=== PATIENT | female | born 1975 | race Two or more races ===

== ENCOUNTER 2022-03-28 15:00 | Inpatient (IN) | payer OTHER ==
[~2022-03-28] VITALS: Ht 160 cm; Wt 65.8 kg
[~2022-03-28 15:00] MED LIST: SYNTHROID100 MCG
== END 2022-03-30 12:12 | disposition home or self-care (01) | DRG 581 ==
LOC: SURG 03-29 06:00 → O/R 03-29 06:30 → SURG 03-29 15:00 → OB/GYN 03-29 20:11
PROVIDERS: Plastic Surgery; ADMIT Surgery; ATTEND Surgery
PROC: 0HRV0JZ Replacement of Bilateral Breast with Synthetic Substitute, Open Approach (ICD-10-PCS; 2022-03-29)
PROC: 07T50ZZ Resection of Right Axillary Lymphatic, Open Approach (ICD-10-PCS; principal; 2022-03-29 17:45)
PROC: 0HTV0ZZ Resection of Bilateral Breast, Open Approach (ICD-10-PCS; 2022-03-29 17:45)
DX: D24.1 Benign neoplasm of right breast (principal); D24.2 Benign neoplasm of left breast; N60.22 Fibroadenosis of left breast; N60.21 Fibroadenosis of right breast; Z15.01 Genetic susceptibility to malignant neoplasm of breast; Z90.13 Acquired absence of bilateral breasts and nipples; Z20.822 Contact with and (suspected) exposure to COVID-19